=== PATIENT | male | born 1980 | race Two or more races ===

== ENCOUNTER 2017-12-04 00:46 | Emergency (ER) | payer SELFPAY ==
[~2017-12-04] VITALS: Ht 170.2 cm; Wt 68.0 kg
--- NOTE | 2017-12-04 01:00 | NUR ---
PT BIB [facility] WITH A C/O ANXIETY AND POSSIBLE SI. PT DENIES SI AND HI AT THIS TIME. PT STATED THAT HE WAS ANXIOUS AND GOT INTO AN ARGUEMENT WITH HIS GIRLFRIEND. PT STATED THAT HE CALLED 911 BECAUSE SOMEONE WAS CHASING HIM AND HE NEEDED HELP. PT REFUSED TO ALLOW TRIAGE TO TAKE VITAL SIGNS. PT AMBULATED TO ER #6 WITH A STEADY GAIT. PT REFUSED TO GIVE A URINE SAMPLE AND BLOOD. PT WANTED "10 MINS TO CALM DOWN THE QUESTIONS MADE HIM FEEL ANXIOUS".
--- NOTE | 2017-12-04 01:03 | NUR ---
SHAKIR THOMASW WENT TO SPEAK TO THE PT, BUT PT STATED "I NEED 10 MINS TO CALM DOWN AND THAT 10 MINS STARTS NOW".
--- NOTE | 2017-12-04 01:07 | NUR ---
SPOKE TO THE PT, AT THE REQUEST OF THE DR GUZMAN: PT'S SI STATUS. PT DENIES SI OR HI AND STATED THAT HE WAS FEELING ANXIOUS AND NEEDED TIME TO HIMSELF. PT TRIED TO CLOSE THE DOOR TO THE ROOM. THE PT WAS TOLD THAT WE NEED TO KEEP THE DOOR OPEN.
--- NOTE | 2017-12-04 01:15 | NUR ---
DR LUDWIG IS AT THE BEDSIDE.
--- NOTE | 2017-12-04 01:27 | NUR ---
PT IS REFUSING ALL CARE AT THIS TIME.
--- NOTE | 2017-12-04 01:32 | NUR ---
PT REFUSED TO BE SEEN/TRIAGED/OR BY ER MD LUDWIG. REFUSED TO SIGN AMA. WALKED OUT STATING "DO NOT TOUCH ME I AM GOING TO WALK OUT AND LEAVE"
== END 2017-12-04 01:37 | disposition left against medical advice (07) ==
LOC: ER 00:48
DX: F41.9 Anxiety disorder, unspecified (principal); F22 Delusional disorders; Z59.0 Homelessness